=== PATIENT | female | born 1960 | race Caucasian/White ===

== ENCOUNTER → 2016-11-12 | Day surgery (SDC) | payer OTHER ==
[~2016-11-12] VITALS: Ht 167.6 cm; Wt 87.5 kg
[~2016-11-12] MED LIST: ASPIRIN81 M1 PO; CLARITIN10 M1 PO; FLONASE 0.05% 121 EA NAS; JANUMET 1000 MG1 TA1 PO; LANTUS100 U/ML SC; LEVEMIR10 ML SC; LYRICA75 M1 PO; MEDROL DOSEPAK4 MG PO; METFORMIN500 MG PO; MICARDIS80 MG PO; MULTI-DAY VITA1 EACH PO; NORTRIPTYLINE H10 M1 PO; NOVOLIN N100 U/ML SC; NOVOLOG FLEX100 U/ML SC; ONGLYZA5 MG PO; PRAVACHOL40 MG PO; PRAVASTATIN SOD20 MG PO; PRILOSEC40 M1 PO; PROBIOTIC PO; PROVENTIL0.09 MG/AC IH; WELLBUTRIN75 MG PO; XANAX0.25 MG PO; ZETIA10 MG PO; ZOFRAN ODT4 MG PO
--- NOTE | ~2016-11-12 | PROC NOTE ---
[place] PROCEDURE NOTE NAME: JESSE BUTLER UNIT #: [id number] ROOM: DOCTOR: GAYLE PACK MD BIRTHDATE: [birth year] DOS: 11/12/2016 PREOPERATIVE DIAGNOSIS: Screening examination. POSTOPERATIVE DIAGNOSIS: Screening examination. PROCEDURE: Screening colonoscopy. ENDOSCOPIST: Gayle Pack MD PORTABLE SAWMILL OPERATOR: [id number]. ANESTHESIA: MAC. INDICATIONS: This is a 55-year-old lady with no previous history of colonoscopy or any family history of colorectal cancer who is here for a screening examination. The procedure and its complications were explained to the patient in detail preoperatively. Complications that were discussed included but were not limited to bleeding, colon perforation, and missed lesions and prolonged pain. She agreed to proceed. DESCRIPTION OF PROCEDURE: After identifying the patient, the patient was brought to the operating suite and laid in the left lateral position. After IV sedation was administered, a timeout procedure was called and a digital rectal exam was performed. This was within normal limits. There was no blood seen on the examining finger, no masses that could be palpable. At this point, an adult colonoscope was introduced into the anal canal and advanced sequentially into the rectum, sigmoid colon, descending colon, transverse colon and ascending colon up to the cecum. The colon was found to be completely normal and the prep was optimal. Upon reaching the cecum the scope was withdrawn. Total withdrawal time was 7 minutes. Again no obvious lesions could be identified upon withdrawal of the scope. After the scope was withdrawn the patient was taken to the recovery room in a stable fashion. Prior to withdrawal retroflexion of the scope into the rectum revealed mild internal hemorrhoids that was uncomplicated. The patient tolerated the procedure well. She was taken to the recovery room in stable fashion. Dr. Gayle Pack, the attending endoscopist, was present throughout the operating case. Based on these findings, the patient is recommended to have another colonoscopy in 10 years or before if she develops any new symptoms. These findings were discussed with the patient's postoperatively. I will talk to the patient herself about these findings when I see her in the office in 2 weeks. [place] PROCEDURE NOTE NAME: JESSE BUTLER UNIT #: [id number] ROOM: DOCTOR: GAYLE PACK MDTE: 56 Gayle Pack MD CM:CECIL:PROCEDURE NOTE [id number] GAYLE PACK MD
[2016-11-12 09:00] VITALS: BP 145/76
[2016-11-12 10:05] VITALS: BP 115/62
[2016-11-12 10:20] VITALS: BP 151/80
[2016-11-12 10:35] VITALS: BP 132/68
== END | disposition home or self-care (01) ==
LOC: SDC 11-11 08:45
DX: Z12.11 Encounter for screening for malignant neoplasm of colon (principal); K64.8 Other hemorrhoids; J44.9 Chronic obstructive pulmonary disease, unspecified; K21.9 Gastro-esophageal reflux disease without esophagitis; E11.9 Type 2 diabetes mellitus without complications; F41.9 Anxiety disorder, unspecified; J40 Bronchitis, not specified as acute or chronic; F17.210 Nicotine dependence, cigarettes, uncomplicated; Z79.4 Long term (current) use of insulin; Z90.710 Acquired absence of both cervix and uterus; Z83.3 Family history of diabetes mellitus; Z82.3 Family history of stroke; Z82.49 Family history of ischemic heart disease and other diseases of the circulatory system

== ENCOUNTER → 2016-11-23 | Outpatient (CLI) | payer OTHER | END | disposition home or self-care (01) | LOC: CT 07:51 | DX: S92.322A Displaced fracture of second metatarsal bone, left foot, initial encounter for closed fracture (principal); M79.672 Pain in left foot; M25.475 Effusion, left foot; E11.9 Type 2 diabetes mellitus without complications; M19.072 Primary osteoarthritis, left ankle and foot; X58.XXXA Exposure to other specified factors, initial encounter; Y93.89 Activity, other specified; Y92.89 Other specified places as the place of occurrence of the external cause; Y99.8 Other external cause status ==

== ENCOUNTER → 2017-02-28 | Outpatient (CLI) | payer OTHER | LOC: CARD 07:18 | DX: R07.89 Other chest pain (principal) ==

== ENCOUNTER → 2017-07-12 | Outpatient (CLI) | payer OTHER | END | disposition home or self-care (01) | LOC: CT 07:40 | DX: J44.9 Chronic obstructive pulmonary disease, unspecified (principal); F17.200 Nicotine dependence, unspecified, uncomplicated ==

== ENCOUNTER → 2018-08-25 | Outpatient (CLI) | payer OTHER | END | disposition home or self-care (01) | LOC: RAD 09:16 | DX: R06.02 Shortness of breath (principal); R05 Cough ==

== ENCOUNTER 2018-11-11 10:57 | Emergency (ER) | payer OTHER ==
[~2018-11-11] VITALS: Ht 170.1 cm; Wt 100.2 kg
[2018-11-11] MEDS ORDERED: CLINDAMYCIN HC300 MG PO (11:11)
[2018-11-11] MEDS ORDERED: AMOXICILLIN500 M2 PO (11:11)
== END 2018-11-11 11:16 | disposition home or self-care (01) ==
LOC: ED 10:57
DX: K05.10 Chronic gingivitis, plaque induced (principal); R68.84 Jaw pain; E11.9 Type 2 diabetes mellitus without complications; Z79.4 Long term (current) use of insulin; Z79.899 Other long term (current) drug therapy; Z79.82 Long term (current) use of aspirin

== ENCOUNTER → 2019-06-20 | Outpatient (CLI) | payer OTHER ==
[~2019-06-20] MED LIST changes: +AMOXICILLIN500 M2 PO; +CLINDAMYCIN HC300 MG PO
== END | disposition home or self-care (01) ==
LOC: ORTHO 01:12
DX: M25.512 Pain in left shoulder (principal)

== ENCOUNTER 2019-09-20 09:18 | Emergency (ER) | payer OTHER ==
[2019-09-20 09:40] LABS: BASO # 0.1 10*3/uL (0.0-0.1); BASO % 1.1 % (0.0-1.0); EOS # 0.1 10*3/uL (0.0-0.4); EOS % 1.7 % (1.0-4.0); HEMATOCRIT 38.5 % (37.0-47.0); HEMOGLOBIN 12.5 g/dl (12.0-16.0); LYMPH # 1.5 10*3/uL (1.3-4.4); LYMPH % 31.6 % (27.0-41.0); MEAN CELL VOLUME 84.2 fl (81.0-99.0); MEAN CORPUSCULAR HGB 27.4 pg (27.0-31.0); MEAN CORPUSCULAR HGB CONC 32.5 g/dl (33.0-37.0); MEAN PLATELET VOLUME 10.4 fl (9.6-12.3); MONO # 0.3 10*3/uL (0.1-1.0); MONO % 6.9 % (3.0-9.0); NEUT # 2.7 10*3/uL (2.3-7.9); NEUT % 58.5 % (47.0-73.0); PLATELET COUNT AUTOMATED 213 10*3/uL (130-400); RED BLOOD COUNT 4.57 10*6/uL (4.10-5.10); WHITE BLOOD COUNT 4.7 10*3/uL (4.8-10.8)
[2019-09-20 10:14] LABS: ALBUMIN 3.6 gm/dl (3.1-4.5); ALKALINE PHOSPHATASE 148 U/L (45-117); BUN 12 mg/dl (7-24); CHLORIDE 104 mmol/L (98-107); CREATININE 0.81 mg/dL (0.55-1.02); POTASSIUM 4.1 mmol/L (3.5-5.1); SGOT/AST 19 IU/L (3-35); SGPT/ALT 40 U/L (12-78); SODIUM 137 mmol/L (136-145); TOTAL PROTEIN 7.3 gm/dL (6.4-8.2)
[2019-09-20 10:29] LABS: TROPONIN I < 0.015 ng/ml (<0.045)
[2019-09-20] MEDS ORDERED: ZITHROMAX250 MG PO (11:33)
[2019-09-20] MEDS ORDERED: PREDNISONE20 M1 PO (11:33)
== END 2019-09-20 11:45 | disposition home or self-care (01) ==
LOC: ED 09:18
PROVIDERS: Emergency Medicine
DX: J20.9 Acute bronchitis, unspecified (principal); R79.1 Abnormal coagulation profile; Z79.899 Other long term (current) drug therapy; Z79.82 Long term (current) use of aspirin

== ENCOUNTER → 2020-01-02 | Outpatient (CLI) | payer OTHER ==
[~2020-01-02] MED LIST changes: +ATIVAN0.5 MG PO; +CELEXA10 MG PO; +FISH OIL 1,2001 EACH PO; +FLONASE ALLERG9.9 ML NAS; +LEVAQUIN750 M1 PO; +LIPITOR40 MG PO; +Lopressor25 MG PO; +PREDNISONE20 M1 PO; +PROBIOTIC1 EAC2 PO; +PROVENTIL HFA6.7 GM INH; +STIOLTO RESPIMAT4 GM INH; +TRESIBA100 UNIT/1 SQ; +VITAMIN D350 MC2 GT; +ZITHROMAX250 MG PO; +ZYRTEC10 M3 PO
--- NOTE | 2020-01-02 10:00 | NUR ---
INFORMED CONSENT SIGNED FOR LEXISCAN STRESS TEST WITH DR. LONG. RESTING EKG NSR, HR 78, BP 118/68. PULSE OX 96% AND LUNGS CLEAR. COMPLETED ONE MINUTE OF LEXISCAN PROTOCOL RECEIVING LEXISCAN 0.4MG OVER 10 SECONDS. NO ARRHYTHMIAS OR ST CHANGES NOTED. PT C/O HOT FLASH. LAST RECOVERY HR 93, BP 110/58. WAITING NUCLEAR SCANNING IN STABLE CONDITION.
== END | disposition home or self-care (01) ==
LOC: CARD 00:03
DX: N30.01 Acute cystitis with hematuria (principal); R06.02 Shortness of breath

== ENCOUNTER 2020-01-08 17:24 | Emergency (ER) | payer OTHER ==
[~2020-01-08] VITALS: Ht 170.1 cm; Wt 108.0 kg
[~2020-01-08 17:24] MED LIST changes: -LEVAQUIN750 M1 PO
[2020-01-08 18:32] LABS: BASO % 0.6 % (0.0-1.0); EOS # 0.1 10*3/uL (0.0-0.4); HEMATOCRIT 35.1 % (37.0-47.0); LYMPH # 1.8 10*3/uL (1.3-4.4); LYMPH % 26.1 % (27.0-41.0); MEAN CELL VOLUME 84.6 fl (81.0-99.0); MEAN CORPUSCULAR HGB 27.7 pg (27.0-31.0); MEAN CORPUSCULAR HGB CONC 32.8 g/dl (33.0-37.0); MEAN PLATELET VOLUME 10.7 fl (9.6-12.3); MONO # 0.5 10*3/uL (0.1-1.0); MONO % 7.3 % (3.0-9.0); NEUT # 4.5 10*3/uL (2.3-7.9); NEUT % 64.7 % (47.0-73.0); PLATELET COUNT AUTOMATED 223 10*3/uL (130-400); RED BLOOD COUNT 4.15 10*6/uL (4.10-5.10); RED CELL DISTRI WIDTH 15.9 % (0-14.5)
[2020-01-08 18:44] LABS: ACT PARTIAL THROMBO TIME 27.3 SECONDS (20.0-32.1)
[2020-01-08 18:47] LABS: ALBUMIN 3.6 gm/dl (3.1-4.5); ALKALINE PHOSPHATASE 123 U/L (45-117); BUN 14 mg/dl (7-24); CHLORIDE 103 mmol/L (98-107); LIPASE 53 U/L (73-393); POTASSIUM 4.1 mmol/L (3.5-5.1); SGOT/AST 17 IU/L (3-35); SGPT/ALT 29 U/L (12-78); SODIUM 135 mmol/L (136-145); TOTAL PROTEIN 6.9 gm/dL (6.4-8.2)
[2020-01-08] MEDS ORDERED: LEVAQUIN750 M1 PO (19:25)
== END 2020-01-08 19:45 | disposition home or self-care (01) ==
LOC: ED 17:24
PROVIDERS: Nurse Practitioner Family
DX: J18.1 Lobar pneumonia, unspecified organism (principal); R79.1 Abnormal coagulation profile; E11.9 Type 2 diabetes mellitus without complications; J44.9 Chronic obstructive pulmonary disease, unspecified; K21.9 Gastro-esophageal reflux disease without esophagitis; Z79.899 Other long term (current) drug therapy

== ENCOUNTER → 2020-08-18 | Outpatient (CLI) | payer OTHER ==
[~2020-08-18] MED LIST changes: +LEVAQUIN750 M1 PO
== END | disposition home or self-care (01) ==
LOC: RAD 08:38
PROVIDERS: ATTEND Physician Assistant
DX: Z13.820 Encounter for screening for osteoporosis (principal); M85.80 Other specified disorders of bone density and structure, unspecified site; Z78.0 Asymptomatic menopausal state

== ENCOUNTER → 2020-11-10 | Outpatient (CLI) | payer MEDICARE ==
[2020-11-10 15:46] LABS: BASO % 0.5 % (0.0-1.0); EOS # 0.1 10*3/uL (0.0-0.4); EOS % 0.9 % (1.0-4.0); HEMATOCRIT 36.3 % (37.0-47.0); LYMPH # 1.8 10*3/uL (1.3-4.4); LYMPH % 32.3 % (27.0-41.0); MEAN CELL VOLUME 86.6 fl (81.0-99.0); MEAN CORPUSCULAR HGB 27.9 pg (27.0-31.0); MEAN CORPUSCULAR HGB CONC 32.2 g/dl (33.0-37.0); MEAN PLATELET VOLUME 10.4 fl (9.6-12.3); MONO # 0.5 10*3/uL (0.1-1.0); MONO % 8.5 % (3.0-9.0); NEUT # 3.2 10*3/uL (2.3-7.9); NEUT % 57.6 % (47.0-73.0); PLATELET COUNT AUTOMATED 218 10*3/uL (130-400); RED BLOOD COUNT 4.19 10*6/uL (4.10-5.10); RED CELL DISTRI WIDTH 16.7 % (0-14.5); WHITE BLOOD COUNT 5.6 10*3/uL (4.8-10.8)
[2020-11-10 16:16] LABS: BUN 17 mg/dl (7-24); CHLORIDE 103 mmol/L (98-107); CREATININE 0.77 mg/dL (0.55-1.02); POTASSIUM 4.1 mmol/L (3.5-5.1); SODIUM 138 mmol/L (136-145); URIC ACID 3.7 mg/dL (2.6-6.0)
== END | disposition home or self-care (01) ==
LOC: US 15:00 → LAB 15:03
PROVIDERS: ATTEND Nurse Practitioner Primary Care
DX: M79.604 Pain in right leg (principal); R79.89 Other specified abnormal findings of blood chemistry; I10 Essential (primary) hypertension; E11.9 Type 2 diabetes mellitus without complications

== ENCOUNTER → 2023-11-04 | Outpatient (CLI) | payer OTHER | END | disposition home or self-care (01) | LOC: CT 08:55 | PROVIDERS: ATTEND Physician Assistant | DX: Z12.2 Encounter for screening for malignant neoplasm of respiratory organs (principal); J43.2 Centrilobular emphysema; R91.1 Solitary pulmonary nodule; F17.211 Nicotine dependence, cigarettes, in remission; I25.10 Atherosclerotic heart disease of native coronary artery without angina pectoris; I70.0 Atherosclerosis of aorta; E27.8 Other specified disorders of adrenal gland ==

== ENCOUNTER → 2024-08-21 | Outpatient (CLI) | payer MEDICARE | END | disposition home or self-care (01) | LOC: LAB 15:41 | PROVIDERS: ATTEND Nurse Practitioner Family | DX: J20.9 Acute bronchitis, unspecified (principal) ==

== ENCOUNTER → 2025-05-15 | Outpatient (CLI) | payer MEDICARE | END | disposition home or self-care (01) | LOC: RAD 12:08 | PROVIDERS: ATTEND Physician Assistant | DX: M25.551 Pain in right hip (principal) ==

== ENCOUNTER → 2025-06-17 | Outpatient (CLI) | payer MEDICARE | END | disposition home or self-care (01) | LOC: CT 00:14 | PROVIDERS: ATTEND Physician Assistant | DX: Z12.2 Encounter for screening for malignant neoplasm of respiratory organs (principal); J43.9 Emphysema, unspecified; F17.211 Nicotine dependence, cigarettes, in remission; I70.0 Atherosclerosis of aorta; I25.10 Atherosclerotic heart disease of native coronary artery without angina pectoris ==

== ENCOUNTER → 2025-07-22 | Outpatient (CLI) | payer MEDICARE | END | disposition home or self-care (01) | LOC: US 10:32 | PROVIDERS: ATTEND Physician Assistant | DX: I65.23 Occlusion and stenosis of bilateral carotid arteries (principal); H53.9 Unspecified visual disturbance ==